=== PATIENT | female | born 1975 | race Caucasian/White ===

== ENCOUNTER 2016-11-15 18:19 | Emergency (ER) | payer MEDICARE, MEDICAID ==
--- NOTE | 2016-11-15 18:29 | ED Physician Chart ---
Chief Complaint/HPI - Patient Information Date Seen:: 11/15/16 Time Seen:: 18:25 Chief Complaint:: Toothache in R lower jaw for 2 days. History of Present Illness:: Pt has had toothache in R lower jaw for 2 days with swelling in her gum. No fever. Taking po well without N/V/D. Pt is here mainly for pain control. Pt plans to see her dentist/oral surgeon tomorrow. Pain medication was offered. Pt states that she had Dilaudid in the past that she responded well without adverse reactions. Allergies:: cephalexin, morphine. Vitals:: see Nurse Note. Historian:: Patient Family MD/PCP:: Dr. Siddiqi LMP:: 11/10/16 Review:: Nurse's Note Reviewed Review of Systems - Review of Systems General/Constitutional: No fever, No chills, No weight loss, No weakness, No diaphoresis, No edema, No loss of appetite Skin: No skin lesions, No rash, No bruising Head: No headache, No light-headedness Eyes: No loss of vision, No pain, No diplopia ENT: No earache, No nasal drainage, No sore throat, No tinnitus, Other (dental pain) Neck: No neck pain, No swelling, No thyromegaly, No stiffness, No mass noted Cardio Vascular: No chest pain, No palpitations, No PND, No orthopnea, No edema Pulmonary: No SOB, No cough, No sputum, No wheezing GI: No nausea, No vomiting, No diarrhea, No pain, No hematemesis G/U: No dysuria, No frequency, No hematuria Musculoskeletal: Bone or joint pain Endocrine: No polyuria, No polydipsia Psychiatric: Prior psych history, No depression Hematopoietic: No bruising, No lymphadenopathy Allergic/Immuno: No urticaria, No angioedema Neurological: No syncope, No focal symptoms, No weakness, No paresthesia, No headache, No dizziness, No confusion Past Medical History - Past Medical History Past Medical History: HTN, DM Family History: Heart disease (mother), Diabetes Melitus (mother), HTN (mother) Social History: Smoker ( 1 ppd. Pt has been informed about health risks associated with chronic tobacco use and has been advised to quit. Pt has been encouraged to enroll in a smoking cessation program. Pt acknowledges understanding.), No Alcohol, No Drug Use, , Other (lives with camila and her daughter.) Surgical History: Cholecystectomy (laparoscopic, in 2010.), (x 2 with last one in 2013.), other (Tubal ligation in 2013.) Psychiatricy History: Depression Medication: Reviewed Family Medical History - Family Member Mother Hx Family Diabetes: Yes Physical Exam - Physical Examination General/Constitutional: Awake, Well-developed, well-nourished, Alert, No distress, GCS 15, Non-toxic appearing, Ambulatory Other Gen/Cons comments:: Breathes comfortably, speaks clearly, and ambulates without difficulty. Head: Atraumatic Eyes: Lids, conjuctiva normal, PERRL, EOMI Skin: Nl inspection, No rash, No skin lesions, No ecchymosis, Well hydrated, No lymphadenopathy ENMT: External ears, nose nl, Nasal exam nl, Oropharynx nl (except pt has poor dentition, see below.) Other ENMT comments:: Poor dentition with multiple missing teeth. R first molar tooth in lower jaw has discoloration and associated swelling in gum. No open wound or exudate. Neck: Nontender, Full ROM w/o pain, No JVD, No nuchal rigidity, No mass, No stridor Other Neck comments:: No lymphadenopathy. Respiratory: Nl effort/Exclusion, Clear to Auscultation, No Wheeze/Rhonchi/Rales Cardio Vascular: RRR, No murmur, gallop, rubs GI: No tenderness/rebounding/guarding, No organomegaly, Normal BS's, Nondistended Other GI comments:: Abdomen is obese but soft. Extremities: No tenderness or effusion, Full ROM, normal strength in all extremities, No edema, Normal digits & nails Neuro/Psych: Alert/oriented (oriented x 3), Judgement/insight normal, Mood normal, Normal gait, No focal deficits Labs/Radiology/EKG Results - Lab Results Results: Laboratory Tests 11/15/16 11/15/16 11/15/16 18:35 18:44 18:44 WBC 16.9 H RBC 4.97 Hgb 14.0 Hct 42.0 MCV 84.5 MCH 28.1 MCHC Differential 33.2 RDW 13.9 Plt Count 432 H MPV 7.6 Neutrophils % 70.1 Lymphocytes % 23.5 Monocytes % 5.2 Eosinophils % 1.2 Basophils % 0.0 Sodium 135 L Potassium 3.9 Chloride 103 Carbon Dioxide 24.4 Anion Gap 11.5 BUN 9 Creatinine 0.7 Est GFR ( Amer) > 60.0 Est GFR (Non-Af Amer) > 60.0 BUN/Creatinine Ratio 12.9 Glucose 273 H Hemoglobin A1c % Whole Bld Lactic Acid Calcium 9.6 Total Bilirubin 0.3 AST 12 L ALT 9 Alkaline Phosphatase 105 H Total Protein 7.2 Albumin 4.2 Globulin 3.0 Albumin/Globulin Ratio 1.4 Urine Test NEGATIVE Serum Ketones 11/15/16 11/15/16 11/15/16 18:44 18:44 18:44 WBC RBC Hgb Hct MCV MCH MCHC Differential RDW Plt Count MPV Neutrophils % Lymphocytes % Monocytes % Eosinophils % Basophils % Sodium Potassium Chloride Carbon Dioxide Anion Gap BUN Creatinine Est GFR ( Amer) Est GFR (Non-Af Amer) BUN/Creatinine Ratio Glucose Hemoglobin A1c % 11.1 H Whole Bld Lactic Acid 1.65 Calcium Total Bilirubin AST ALT Alkaline Phosphatase Total Protein Albumin Globulin Albumin/Globulin Ratio Urine Test Serum Ketones NEGATIVE ED Septic Shock - . Is Septic Shock (SBP<90, OR Lactate>4 mmol\L) present?: No Reassessment (Disposition) - Reassessment Reassessment:: 2026 Pt has been repeatedly evaluated. Pt feels much better. Repeat Accuchek is 235. Lab findings have been reviewed with pt. Pt requests to go home now and states that she will follow with her dentist/oral surgeon tomorrow morning. Aftercare instructions have been given. Her fiance Russel will drive her home. Reassessment Condition:: Improved - Diagnosis Diagnosis:: Toothache due to pulpitis/dental decay with associated early dental abscess, stable. Diabetes mellitus, stable. - Aftercare/Follow up Instructions Aftercare/Follow-Up Instructions:: Refer to Discharge Instructions Notes:: Bedrest for now. Avoid extreme cold or warm food or liquid. Drowsiness precautions given with the use of Dilaudid. May take Tylenol 500 mg po q6h prn pain. May also take Motrin 200 mg tab 4 tabs po q8h prn pain. F/U with dentist/oral surgeon of pt's choice tomorrow morning as planned. F/U with PCP Dr. Pleitz also in one day for recheck with repeat lab studies: CBC , CMP. Return to ER immediately if condition worsens or if any further questions /problems. Medication Prescribed:: Clindamycin 300 mg tab one tab po q6h for 10 days. D-40 R-0 - Patient Disposition Discharge/Transfer:: Home Time:: 20:40 Condition at Disposition:: Stable, Improved
[2016-11-15] MEDS ORDERED: HYDROmorphone 1 mg/mL 1mL Syr IVP STA (18:37)
[2016-11-15] MEDS ORDERED: Clindamycin 600mg/50mL 600 MG/50 ML BAG IV ONE (18:39)
[2016-11-15 18:56] LABS: % EOSINOPHILS 1.2 % (0.0-5.0); % LYMPHOCYTES 23.5 % (20.0-50.0); % MONOCYTES 5.2 % (2.0-10.0); % NEUTROPHILS 70.1 % (40.0-80.0); MEAN CELL VOLUME 84.5 fl (81-100); MEAN CORPUSCULAR HEMOGLOBIN 28.1 pg (27.0-31.0); MEAN CORPUSCULAR HGB CONC 33.2 pg (28.0-36.0); MEAN PLATELET VOLUME 7.6 fl; NEUTROPHILE ABSOLUTE 11.8 Th/cmm (1.8-8.0); PLATELET COUNT 432 Th/cmm (150-400); RED BLOOD COUNT 4.97 Mil/cmm (3.80-5.10); RED CELL DISTRIBUTION WIDTH 13.9 % (11.5-20.0)
[2016-11-15 18:58] LABS: WHITE BLOOD COUNT 16.9 Th/cmm (4.8-10.8)
[2016-11-15 19:06] LABS: ALB/GLOB RATIO 1.4 (1.0-1.8); ALKALINE PHOSPHATASE 105 U/L (34-104); ANION GAP 11.5 (7.0-16.0); BILIRUBIN,TOTAL 0.3 mg/dL (0.3-1.0); BUN - UREA NITROGEN 9 mg/dL (7-25); BUN/CREATININE RATIO 12.9; CALCIUM SERUM 9.6 mg/dL (8.6-10.3); CARBON DIOXIDE 24.4 mEq/L (21.0-31.0); CHLORIDE 103 mEq/L (98-107); CREATININE - SERUM 0.7 mg/dL (0.6-1.2); GLUCOSE 273 mg/dL (70-105); POTASSIUM SERUM 3.9 mEq/L (3.5-5.1); SGOT 12 U/L (13-39); SGPT/ALT 9 U/L (7-52); SODIUM SERUM 135 mEq/L (136-145)
[2016-11-15] MEDS ORDERED: HYDROmorphone 1 mg/mL 1mL Syr ONE (19:38)
[2016-11-15] MEDS ORDERED: Clindamycin 150 mg/mL 4mL Vial ONE (19:38)
== END 2016-11-15 21:10 | disposition home or self-care (01) ==
LOC: ER 18:19
DX: K04.7 Periapical abscess without sinus (principal); E11.9 Type 2 diabetes mellitus without complications; I10 Essential (primary) hypertension; F17.210 Nicotine dependence, cigarettes, uncomplicated
CPT/HCPCS: 36415-UA; 80053-TC; 81025-TC; 82010-TC; 82948-90; 83036-90; 83605; 85025-TC; 96375; J1170; X5958; Z7502

== ENCOUNTER 2016-11-16 04:54 | Emergency (ER) | payer MEDICARE, MEDICAID ==
--- NOTE | 2016-11-16 05:01 | ED Physician Chart ---
Chief Complaint/HPI - Patient Information Date Seen:: 11/16/16 Time Seen:: 05:00 Chief Complaint:: Dental pain. History of Present Illness:: Brought in by her fiance Russel with private auto because her dental pain is not well controlled. Pt was seen last evening for the same condition. Pt has not had her prescription filled. No fever. Taking po well without N/V/D. No lightheadedness. Allergies:: Allergies Allergy/AdvReac Type Severity Reaction Status Date / Time cephalexin [From Keflex] Allergy Verified 11/15/16 18:28 morphine Allergy Verified 11/15/16 18:28 Vitals:: see Nurse Note. Historian:: Patient Family MD/PCP:: Dr. Siddiqi LMP:: 11/10/16 Review:: Nurse's Note Reviewed Review of Systems - Review of Systems General/Constitutional: No fever, No chills, No weakness, No edema, No loss of appetite Skin: No rash, No bruising Head: No headache, No light-headedness Eyes: No loss of vision, No pain ENT: No earache, No nasal drainage, No sore throat, No tinnitus, Other (R lower jaw dental pain ) Neck: No neck pain, No swelling, No thyromegaly, No stiffness, No mass noted Cardio Vascular: No chest pain, No palpitations, No edema Pulmonary: No SOB, No cough, No wheezing GI: No nausea, No vomiting, No diarrhea, No pain G/U: No dysuria, No frequency, No hematuria Musculoskeletal: No bone or joint pain, No back pain, No muscle pain Endocrine: No polyuria, No polydipsia Psychiatric: Prior psych history, No depression Hematopoietic: No bruising, No lymphadenopathy Allergic/Immuno: No urticaria, No angioedema Neurological: No syncope, No focal symptoms, No weakness, No paresthesia, No headache, No dizziness, No confusion Past Medical History - Past Medical History Past Medical History: HTN, DM Family History: Heart disease (mother), Diabetes Melitus (mother), HTN (mother) Social History: Smoker (1 ppd. Pt again has been informed about health risks associated with chronic tobacco use and has been advised to quit. Pt has been encouraged to enroll in a smoking cessation program. Pt acknowledges understanding.), No Alcohol, No Drug Use, Other (lives with her fiance and her daughter.) Surgical History: Cholecystectomy (laparoscopic cholecystectomy in ), C- section (x2 with last one in ), other (tubal ligation ) Psychiatricy History: Depression Medication: Reviewed Family Medical History - Family Member Mother Hx Family Diabetes: Yes Physical Exam - Physical Examination General/Constitutional: Awake, Well-developed, well-nourished, Alert, GCS 15, Non-toxic appearing, Ambulatory Other Gen/Cons comments:: Breathes comfortably, speaks clearly, and appears to be in distress due to severe dental pain. Head: Atraumatic Eyes: Lids, conjuctiva normal, PERRL, EOMI Skin: No ecchymosis, Well hydrated, No lymphadenopathy ENMT: External ears, nose nl, Nasal exam nl, Oropharynx nl (except findings in R lower jaw.), Tonsils nl Other ENMT comments:: Poor dentition with multiple missing teeth. There is discoloration in first molar tooth in R lower jaw with concomittent gum swelling. No exudate. Neck: Nontender, Full ROM w/o pain, No JVD, No nuchal rigidity, No mass, No stridor Other Neck comments:: No cervical lymphadenopathy. Respiratory: Nl effort/Exclusion, Clear to Auscultation, No Wheeze/Rhonchi/Rales Cardio Vascular: RRR, No murmur, gallop, rubs GI: No tenderness/rebounding/guarding, No organomegaly, Normal BS's, Nondistended, No mass/bruits Other GI comments:: Obese but soft. Extremities: No edema Neuro/Psych: Alert/oriented (oriented x 3), Normal gait, No focal deficits Labs/Radiology/EKG Results - Lab Results Results: Laboratory Tests 11/16/16 05:40 WBC 14.3 H RBC 4.89 Hgb 13.8 Hct 40.9 MCV 83.8 MCH 28.3 MCHC Differential 33.8 RDW 14.3 Plt Count 237 D MPV 8.5 Neutrophils % 70.7 Lymphocytes % 21.2 Monocytes % 5.7 Eosinophils % 2.4 Basophils % 0.0 Laboratory Last Values WBC 14.3 Th/cmm (4.8-10.8) H 11/16/16 05:40 RBC 4.89 Mil/cmm (3.80-5.10) 11/16/16 05:40 Hgb 13.8 gm/dL (11.7-15.5) 11/16/16 05:40 Hct 40.9 % (35.0-45.0) 11/16/16 05:40 MCV 83.8 fl (81-100) 11/16/16 05:40 MCH 28.3 pg (27.0-31.0) 11/16/16 05:40 MCHC Differential 33.8 pg (28.0-36.0) 11/16/16 05:40 RDW 14.3 % (11.5-20.0) 11/16/16 05:40 Plt Count 237 Th/cmm (150-400) D 11/16/16 05:40 MPV 8.5 fl 11/16/16 05:40 Neutrophils % 70.7 % (40.0-80.0) 11/16/16 05:40 Lymphocytes % 21.2 % (20.0-50.0) 11/16/16 05:40 Monocytes % 5.7 % (2.0-10.0) 11/16/16 05:40 Eosinophils % 2.4 % (0.0-5.0) 11/16/16 05:40 Basophils % 0.0 % (0.0-2.0) 11/16/16 05:40 Sodium 132 mEq/L (136-145) L 11/16/16 06:45 Potassium 3.9 mEq/L (3.5-5.1) 11/16/16 06:45 Chloride 102 mEq/L (98-107) 11/16/16 06:45 Carbon Dioxide 25.4 mEq/L (21.0-31.0) 11/16/16 06:45 Anion Gap 8.5 (7.0-16.0) 11/16/16 06:45 BUN 9 mg/dL (7-25) 11/16/16 06:45 Creatinine 0.6 mg/dL (0.6-1.2) 11/16/16 06:45 Est GFR ( Amer) > 60.0 ml/min (>90) 11/16/16 06:45 Est GFR (Non-Af Amer) > 60.0 ml/min 11/16/16 06:45 BUN/Creatinine Ratio 15.0 11/16/16 06:45 Glucose 300 mg/dL (70-105) H 11/16/16 06:45 Calcium 9.1 mg/dL (8.6-10.3) 11/16/16 06:45 Total Bilirubin 0.3 mg/dL (0.3-1.0) 11/16/16 06:45 AST 10 U/L (13-39) L 11/16/16 06:45 ALT 6 U/L (7-52) L 11/16/16 06:45 Alkaline Phosphatase 110 U/L (34-104) H 11/16/16 06:45 Total Protein 6.9 gm/dL (6.0-8.3) 11/16/16 06:45 Albumin 3.8 gm/dL (3.7-5.3) 11/16/16 06:45 Globulin 3.1 gm/dL 11/16/16 06:45 Albumin/Globulin Ratio 1.2 (1.0-1.8) 11/16/16 06:45 ED Septic Shock - . Is Septic Shock (SBP<90, OR Lactate>4 mmol\L) present?: No Reassessment (Disposition) - Reassessment Reassessment:: 0550 Pt feels much better and does not need more pain control. Awaiting lab results. 0705 Pt remains comfortable. No new findings. 0733 Remaining lab results just became available. Lab results have been reviewed with pt. Her WBC has decreased from last evening. Pt still has elevated glucose but no anion gap. Pt states that she has not had her usual dose of insulin this morning, and she will use her morning dose of insulin at home and will monitor her glucose later. Pt is aware of proper actions to be taken for hyper- or hypoglycemia. Pt requests a short supply of Vicodin that she can take when her pain becomes severe. Pt states that she tolerated Vicodin well in the past without adverse reactions. Pt requests to leave now as she plan to be seen and treated by her dentist/oral surgeon this morning. Aftercare instructions have been given. Her camila Goode will drive her home. Reassessment Condition:: Improved - Diagnosis Diagnosis:: Toothache with pulpitis in first molar tooth in R lower jaw with associated dental abscess. Stable and improved. - Aftercare/Follow up Instructions Aftercare/Follow-Up Instructions:: Refer to Discharge Instructions Notes:: Continue present care. Avoid extreme cold or hot food or liquid. Drowsiness precautions given with the use of Dilaudid or Vicodin. Pt has been reminded to be compliant with her insulin therapy and to monitor her glucose at home. Return to ER immediately if glucose is uncontrolled or pt becomes symptomatic with hyperglycemia. Increase oral fluid. Continue Clindamycin as prescribed yesterday. Do not take acetaminophen containing medications such as Tylenol when taking Vicodin. F/U with dentist/oral surgeon of her choice this morning as planned. F/U with PCP Dr. Siddiqi in one day for recheck with repeat lab studies: CBC, CMP. Return to ER immediately if condition worsens or if any further questions/ problems. Medication Prescribed:: Vicodin ES one tab po q6h prn severe pain only. D-10 R-0 - Patient Disposition Discharge/Transfer:: Home Time:: 07:40 Condition at Disposition:: Stable, Improved ED Discharge Plan - Patient Disposition Instructions: Dental Pain, Dental Abscess Accepting Physician: Neeru Aleman [Other] - 1-3 Days
[2016-11-16] MEDS ORDERED: HYDROmorphone 1 mg/mL 1mL Syr ONE (05:06)
[2016-11-16] MEDS: HYDROmorphone 1 mg/mL 1mL Syr IM STA (05:08)
[2016-11-16] MEDS ORDERED: Clindamycin 150 mg/mL 4mL Vial ONE (05:50)
[2016-11-16 05:56] LABS: HEMATOCRIT 40.9 % (35.0-45.0); HEMOGLOBIN 13.8 gm/dL (11.7-15.5); MEAN CORPUSCULAR HEMOGLOBIN 28.3 pg (27.0-31.0)
[2016-11-16] MEDS: Clindamycin 600mg/50mL 600 MG/50 ML BAG IV ONE (05:58)
[2016-11-16 05:59] LABS: % EOSINOPHILS 2.4 % (0.0-5.0); % LYMPHOCYTES 21.2 % (20.0-50.0); % MONOCYTES 5.7 % (2.0-10.0); % NEUTROPHILS 70.7 % (40.0-80.0); MEAN CELL VOLUME 83.8 fl (81-100); MEAN CORPUSCULAR HGB CONC 33.8 pg (28.0-36.0); MEAN PLATELET VOLUME 8.5 fl; NEUTROPHILE ABSOLUTE 10.2 Th/cmm (1.8-8.0); RED BLOOD COUNT 4.89 Mil/cmm (3.80-5.10); RED CELL DISTRIBUTION WIDTH 14.3 % (11.5-20.0)
[2016-11-16 06:05] LABS: PLATELET COUNT 237 Th/cmm (150-400); WHITE BLOOD COUNT 14.3 Th/cmm (4.8-10.8)
[2016-11-16 07:14] LABS: ALB/GLOB RATIO 1.2 (1.0-1.8); ALKALINE PHOSPHATASE 110 U/L (34-104); ANION GAP 8.5 (7.0-16.0); BILIRUBIN,TOTAL 0.3 mg/dL (0.3-1.0); BUN - UREA NITROGEN 9 mg/dL (7-25); CALCIUM SERUM 9.1 mg/dL (8.6-10.3); CARBON DIOXIDE 25.4 mEq/L (21.0-31.0); CHLORIDE 102 mEq/L (98-107); CREATININE - SERUM 0.6 mg/dL (0.6-1.2); GLUCOSE 300 mg/dL (70-105); POTASSIUM SERUM 3.9 mEq/L (3.5-5.1); SGOT 10 U/L (13-39); SGPT/ALT 6 U/L (7-52); SODIUM SERUM 132 mEq/L (136-145)
== END 2016-11-16 07:40 | disposition home or self-care (01) ==
LOC: ER 04:54
DX: K04.01 Reversible pulpitis (principal); K04.7 Periapical abscess without sinus; M27.2 Inflammatory conditions of jaws; I10 Essential (primary) hypertension; E11.9 Type 2 diabetes mellitus without complications; F17.210 Nicotine dependence, cigarettes, uncomplicated; Z88.6 Allergy status to analgesic agent; Z90.49 Acquired absence of other specified parts of digestive tract; Z88.1 Allergy status to other antibiotic agents
CPT/HCPCS: 36415-UA; 80053-TC; 85025-TC; J1170; X5958; Z7502

== ENCOUNTER 2016-12-27 12:24 | Emergency (ER) | payer MEDICARE, MEDICAID ==
--- NOTE | 2016-12-27 13:18 | ED Physician Chart ---
Chief Complaint/HPI - Patient Information Date Seen:: 12/27/16 Time Seen:: 12:28 Chief Complaint:: Dental pain for 7-8 months. History of Present Illness:: Pt has had intermittent toothache for at least 7-8 months. Pt has had worsening toothache at R lower jaw for 3 days. No fever. Taking po well without N/V/D. Dental pain can be worsened with cold food/beverage ingestion. Pt states that she has pending dental appointment tomorrow. Pt was seen here by me on 11/15/16 for essentially same condition. However, she has not been scheduled to have her decayed tooth in R lower jaw treated or extracted. Allergies:: Allergies Allergy/AdvReac Type Severity Reaction Status Date / Time cephalexin [From Keflex] Allergy Verified 11/15/16 18:28 morphine Allergy Verified 11/15/16 18:28 Vitals:: Vital Signs - 8 hr 12/27/16 12:37 Temp 98.3 F HR 94 RR 17 BP 133/75 O2 Sat % 97 Historian:: Patient Family MD/PCP:: Dr. Siddiqi LMP:: 12/08/16 Review:: Nurse's Note Reviewed Review of Systems - Review of Systems General/Constitutional: No fever, No chills, No weight loss, No weakness, No edema, No loss of appetite Skin: No skin lesions, No rash, No bruising Head: No headache, No light-headedness Eyes: No pain, No diplopia ENT: No earache, No nasal drainage, No sore throat, Other (Toothache in right lower jaw.) Neck: No neck pain, No swelling, No thyromegaly, No stiffness, No mass noted Cardio Vascular: No chest pain, No palpitations, No edema Pulmonary: No SOB, No wheezing GI: No nausea, No vomiting, No diarrhea, No pain G/U: No dysuria, No frequency 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 Pt has been informed about health risks associated with chronic tobacco use and has been advised to quit. Pt has been encouraged to enroll in a smoking cessation program. Pt acknowledges understanding.), No Alcohol, No Drug Use, , Other (lives with her significant others.) Employment:: Unemployed. Surgical History: Cholecystectomy (laparoscopic cholecystectomy . C sections x 2 with last one . Tubal ligation ) Psychiatricy History: Depression Medication: Reviewed Family Medical History - Family Member Mother Hx Family Hypertension: Yes Hx Family Diabetes: Yes Physical Exam - Physical Examination General/Constitutional: Awake, Well-developed, well-nourished, Alert, No distress, GCS 15, Non-toxic appearing, Ambulatory Other Gen/Cons comments:: Breathes comfortably, speaks clearly, interacts normally and ambulates without difficulty. Head: Atraumatic Eyes: Lids, conjuctiva normal, PERRL, EOMI Skin: Nl inspection, No rash, No skin lesions, No ecchymosis, Well hydrated, No lymphadenopathy ENMT: External ears, nose nl, Nasal exam nl, Oropharynx nl (except poor dentition with multiple missing teeth. R lower first molar tooth has discoloration with mild peripheral edema and erythema. No exudate.) Neck: Nontender, Full ROM w/o pain, No nuchal rigidity, No mass, No stridor Respiratory: Nl effort/Exclusion, Clear to Auscultation, No Wheeze/Rhonchi/Rales Cardio Vascular: RRR, No murmur, gallop, rubs Extremities: No edema Neuro/Psych: Alert/oriented (oriented x 3 ), Normal gait, No focal deficits ED Septic Shock - . Is Septic Shock (SBP<90, OR Lactate>4 mmol\L) present?: No - <6hrs of presentation: Vital Signs: Vital Signs - 8 hr 12/27/16 12:37 Temp 98.3 F HR 94 RR 17 BP 133/75 O2 Sat % 97 Reassessment (Disposition) - Reassessment Reassessment:: 1457 Pt feels much better. Pt requests to go home now and does not want further observation/management in hospital. Pt states that she has [place] at home that she can take for pain. Pt states that she will see her dentist tomorrow. Aftercare instructions have been given. Her boyfriend Russel will drive her home. Reassessment Condition:: Improved - Diagnosis Diagnosis:: Dental pain in R lower jaw due to pulpitis, stable and improved. Pending further dental treatment tomorrow. Diabetes mellitus, stable. Random Accuchek at ER today is 241. Pt will continue her diabetic therapy and to monitor her glucose at home. - Aftercare/Follow up Instructions Aftercare/Follow-Up Instructions:: Refer to Discharge Instructions Notes:: Bedrest for today. Avoid extremely cold or hot food or beverages. Drowsiness precautions given with the use of Dilaudid or any opioid analgesic. F/U with dentist of pt's choice in one day for recheck. Return to ER immediately if condition worsens or if any further questions/problems. Medication Prescribed:: Clindamycin 300 mg tab one tab po q6h for 10 days. D-40 R-0 - Patient Disposition Discharge/Transfer:: Home Time:: 15:05 Condition at Disposition:: Stable, Improved
[2016-12-27] MEDS ORDERED: HYDROmorphone 1 mg/mL 1mL Syr ONE (14:35)
[2016-12-27] MEDS: HYDROmorphone 1 mg/mL 1mL Syr IM STA (14:40)
== END 2016-12-27 15:10 | disposition home or self-care (01) ==
LOC: ER 12:24
DX: K04.01 Reversible pulpitis (principal); E11.9 Type 2 diabetes mellitus without complications; I10 Essential (primary) hypertension; F17.210 Nicotine dependence, cigarettes, uncomplicated; Z90.49 Acquired absence of other specified parts of digestive tract; Z88.1 Allergy status to other antibiotic agents; Z88.6 Allergy status to analgesic agent
CPT/HCPCS: 82948-90; J1170; Z7502